=== PATIENT | female | born 1990 | race Caucasian/White ===

== ENCOUNTER 2017-09-02 11:16 | Emergency (ER) | payer MEDICAID ==
[2017-09-02 11:31] VITALS: BP 110/76
[2017-09-02] MEDS ORDERED: Sodium Chloride 0.9% 10 ML Syringe FLUSH PRN (11:47)
--- NOTE | 2017-09-02 12:53 | EDM.PDOC ---
ED HPI GENERAL MEDICAL PROBLEM - General Chief Complaint: Chest Pain Stated Complaint: CHEST PAIN/HOT FLASHES Time Seen by Provider: 09/02/17 11:26 Source of Information: Reports: Patient History Limitations: Reports: No Limitations - History of Present Illness INITIAL COMMENTS - FREE TEXT/NARRATIVE: The patient presents with chest pain, hot flashes and lightheadedness. The patient say she woke up with some sharp pain to the middle of her chest. It comes and goes. She went to work and it got worse. She also experienced some hot flashes with it and she was lightheaded. She has never had anything like this before. She had no shortness of breath. She had no nausea, vomiting, abdominal pain, fever, chills or cough. She has no history of a DVT or PE. She has no edema in her legs. She does not smoke. She does use control pills. Onset: Gradual Duration: Hour(s): Location: Reports: Chest Quality: Reports: Sharp Severity: Moderate Improves with: Reports: Immobilization Worsens with: Reports: Movement Context: Reports: Activity (Working made it worse) Associated Symptoms: Reports: Chest Pain. 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: Psychiatric History: Reports: Depression - Past Surgical History HEENT Surgical History: Reports: Oral Surgery, Other (See Below) Other HEENT Surgeries/Procedures: cyst removed from cheek Social & Family History - Family History Family Medical History: Noncontributory - Tobacco Use Smoking Status *Q: Never Smoker - Caffeine Use Caffeine Use: Reports: Soda - Recreational Drug Use Recreational Drug Use: No ED ROS GENERAL - Review of Systems Review Of Systems: See Below Constitutional: Reports: No Symptoms HEENT: Reports: No Symptoms Respiratory: Reports: No Symptoms Cardiovascular: Reports: Chest Pain Endocrine: Reports: No Symptoms GI/Abdominal: Reports: No Symptoms : Reports: No Symptoms Musculoskeletal: Reports: No Symptoms ED EXAM, GENERAL - Physical Exam Exam: See Below Exam Limited By: No Limitations General Appearance: Alert, No Apparent Distress Ears: Normal External Exam Nose: Normal Inspection Head: Atraumatic, Normocephalic Neck: Normal Inspection Respiratory/Chest: No Respiratory Distress, Lungs Clear, Normal Breath Sounds Cardiovascular: Regular Rate, Rhythm, No Edema, No Murmur GI/Abdominal: Soft, Non-Tender, No Organomegaly, No Mass Back Exam: Normal Inspection Extremities: Normal Inspection Neurological: Alert, Oriented, No Motor/Sensory Deficits EKG INTERPRETATION EKG Date: 09/02/17 Time: 11:22 Rhythm: NSR Rate (Beats/Min): 72 [place]: Normal P-Wave: Present QRS: Normal ST-T: Other (Flipped T-waves in the inferior leads) QT: Normal Course - Vital Signs Last Recorded V/S: Last Vital Signs Temp 97.9 F 09/02/17 11:30 Pulse 76 09/02/17 11:30 Resp 20 09/02/17 11:30 BP 110/76 09/02/17 11:30 Pulse Ox 100 09/02/17 11:30 - Orders/Labs/Meds Orders: Active Orders 24 hr Category Date Time Status Cardiac Monitoring [RC] . DIRECTED Care 09/02/17 11:47 Active EKG Documentation Completion [RC] ASDIRECTED Care 09/02/17 11:22 Active Peripheral IV Care [RC] . DIRECTED Care 09/02/17 11:49 Active Chest 2V [CR] Stat Exams 09/02/17 11:49 Taken Sodium Chloride 0.9% [Saline Flush] Med 09/02/17 11:47 Active 10 ml FLUSH ASDIRECTED PRN Peripheral IV Insertion Adult [OM.PC] Stat Oth 09/02/17 11:47 Ordered EKG 12 Lead [EK] Stat Ther 09/02/17 11:22 Ordered Medication Orders Sodium Chloride (Saline Flush) 10 ml FLUSH ASDIRECTED PRN PRN Reason: Keep Vein Open Last Admin: 09/02/17 12:14 Dose: 10 ml Labs: Laboratory Tests 09/02/17 09/02/17 09/02/17 Range/Units 12:01 12:01 12:01 WBC 8.49 (3.98-10.04) K/mm3 RBC 4.55 (3.98-5.22) M/mm3 Hgb 12.0 (11.2-15.7) gm/L Hct 37.5 (34.1-44.9) % MCV 82.4 (79.4-94.8) fl MCH 26.4 (25.6-32.2) pg MCHC 32.0 L (32.2-35.5) g/dl RDW Std Deviation 41.9 (36.4-46.3) fL Plt Count 264 (182-369) K/mm3 MPV 11.8 (9.4-12.3) fl Neut % (Auto) 71.5 H (34.0-71.1) % Lymph % (Auto) 22.5 (19.3-51.7) % [place] % (Auto) 4.6 L (4.7-12.5) % Eos % (Auto) 0.9 (0.7-5.8) Baso % (Auto) 0.4 (0.1-1.2) % Neut # (Auto) 6.07 (1.56-6.13) K/mm3 Lymph # (Auto) 1.91 (1.18-3.74) K/mm3 [place] # (Auto) 0.39 H (0.24-0.36) K/mm3 Eos # (Auto) 0.08 (0.04-0.36) K/mm3 Baso # (Auto) 0.03 (0.01-0.08) K/mm3 D-Dimer, Quantitative 0.32 (0.19-0.50) mg/L Sodium 142 (136-145) mEq/L Potassium 3.3 L (3.5-5.1) mEq/L Chloride 107 (98-107) mEq/L Carbon Dioxide 25 (21-32) mEq/L Anion Gap 13.3 (5-15) BUN 12 (7-18) mg/dL Creatinine 0.9 (0.55-1.02) mg/dL Est Cr Clr Drug Dosing 81.08 mL/min Estimated GFR (MDRD) > 60 (>60) mL/min BUN/Creatinine Ratio 13.3 L (14-18) Glucose 84 (74-106) mg/dL Calcium 8.8 (8.5-10.1) mg/dL Total Bilirubin 0.2 (0.2-1.0) mg/dL AST 15 (15-37) U/L ALT 16 (14-59) U/L Alkaline Phosphatase 67 (46-116) U/L Troponin I < 0.017 (0.00-0.056) ng/mL Total Protein 7.3 (6.4-8.2) g/dl Albumin 3.5 (3.4-5.0) g/dl Globulin 3.8 gm/dL Albumin/Globulin Ratio 0.9 L (1-2) Meds: Medications Generic Name Dose Route Start Last Admin Trade Name Freq PRN Reason Stop Dose Admin Sodium Chloride 10 ml 09/02/17 11:47 09/02/17 12:14 Saline Flush FLUSH 10 ml ASDIRECTED PRN Administration Keep Vein Open - Re-Assessments/Exams Free Text/Narrative Re-Assessment/Exam: 09/02/17 12:53 I ordered an IV saline lock, EKG, CXR and labs. He EKG shows a NSR with no acute changes. Her CXR looks good. Her CBC and CMP look good. Her troponin and D-dimer are negative. I will discharge her home. Departure - Departure Time of Disposition: 12:55 Disposition: Home, Self-Care 01 Condition: Good Clinical Impression: Chest wall pain Referrals: Niharika [place] MIRROR SILVERER [Primary Care Provider] - Forms: ED Department Discharge, ED Return to Work/School Form Additional Instructions: Take motrin or aleve for pain. Please return if you are worse or follow up with you doctor. - My Orders Last 24 Hours: My Active Orders 09/02/17 11:22 EKG Documentation Completion [RC] ASDIRECTED EKG 12 Lead [EK] Stat 09/02/17 11:47 Cardiac Monitoring [RC] . DIRECTED Sodium Chloride 0.9% [Saline Flush] 10 ml FLUSH ASDIRECTED PRN Peripheral IV Insertion Adult [OM.PC] Stat 09/02/17 11:49 Peripheral IV Care [RC] . DIRECTED Chest 2V [CR] Stat - Assessment/Plan Last 24 Hours: My Active Orders 09/02/17 11:22 EKG Documentation Completion [RC] ASDIRECTED EKG 12 Lead [EK] Stat 09/02/17 11:47 Cardiac Monitoring [RC] . DIRECTED Sodium Chloride 0.9% [Saline Flush] 10 ml FLUSH ASDIRECTED PRN Peripheral IV Insertion Adult [OM.PC] Stat 09/02/17 11:49 Peripheral IV Care [RC] . DIRECTED Chest 2V [CR] Stat
--- NOTE | 2017-09-03 07:48 | CR ---
Chest: Two views of the chest were obtained. Comparison: No prior chest x-ray. Heart size and mediastinum are normal. Lungs are clear. Bony structures are unremarkable. Impression: 1. Nothing acute is seen on two-view chest x-ray. Diagnostic code #1
== END 2017-09-02 13:26 | disposition home or self-care (01) ==
LOC: JD.ED 11:16
DX: R07.89 Other chest pain (principal); Z91.011 Allergy to milk products
CPT/HCPCS: 36415; 71046; 80053; 84484; 85025; 85379; 93005; 99285; J7050; 93010; 99284-25